=== PATIENT | female | born 1955 | race Native Hawaiian/Other Pacific Islander ===

== ENCOUNTER 2021-01-21 15:03 | Inpatient (IN) | payer MEDICARE, OTHER ==
[~2021-01-21] VITALS: Ht 152.4 cm; Wt 63.5 kg
--- NOTE | 2021-01-21 15:24 | NUR ---
[email or web address], medical screening exam in progress
[2021-01-21 16:00] LABS: HEMATOCRIT 39.4 % (31.2-41.9); MEAN CORPUSCULAR HEMOGLOBIN 30.6 uug (24.7-32.8); MEAN CORPUSCULAR VOLUME 88.9 fL (75.5-95.3); PLATELET COUNT (AUTO) 271 K/uL (179-408)
[2021-01-21 16:07] LABS: CREATININE 0.8 mg/dL (0.6-1.3); POTASSIUM 3.8 mmol/L (3.5-5.1)
[2021-01-21 16:20] LABS: BILIRUBIN,DIRECT 0.1 mg/dL (0.0-0.2); BILIRUBIN,TOTAL 0.4 mg/dL (0.2-1.0); TOTAL PROTEIN, SERUM 7.5 g/dL (6.4-8.2)
--- NOTE | 2021-01-21 17:26 | NUR ---
Patient is resting comfortably on gurney with eyes closed, pending COVID test result. PATIENT IS PAIN FREE AT THIS TIME.
--- NOTE | 2021-01-21 18:13 | NUR ---
Patient is eating dinner tray with good appetite.
[2021-01-21 18:35] VITALS: BP 140/73
--- NOTE | 2021-01-21 18:35 | NUR ---
Patient came to the unit via wheelchair. Ambulatory, denies of any pain at this time, pleasant and cooperative upon assessment. Ms Edwina Navarro FRONT EDGER made aware of the admission. Body assessment done, belongings were checked, left hand IV site intact.
[2021-01-21] MEDS ORDERED: METF-440 PO (18:48)
[2021-01-21] MEDS ORDERED: ATOR10TA PO (18:48)
[2021-01-21 20:00] VITALS: BP 106/69
[2021-01-21] MEDS ORDERED: ACETAMINOPHEN 325 MG TABLET PO PRN (20:30)
[2021-01-21] MEDS ORDERED: Z GUARD REMEDY PASTE 57 GM TUBE TOP PRN (20:30)
[2021-01-21] MEDS ORDERED: ONDANSETRON 4 MG/2 ML VIAL IV PRN (20:30)
[2021-01-21] MEDS ORDERED: MAGNESIUM HYDROXIDE 30 ML LIQUID UDC PO PRN (20:30)
[2021-01-21] MEDS ORDERED: ZOLPIDEM 5 MG TABLET PO PRN (20:30)
[2021-01-21] MEDS ORDERED: ENOXAPARIN SODIUM 40 MG/0.4 ML DISP.SYRIN SQ SCH (21:00)
--- NOTE | 2021-01-21 22:30 | NUR ---
offered pain medication and sleeping medication patient declined she said she will call if she needs it .
--- NOTE | 2021-01-21 22:40 | NUR ---
GIVEN LOVENOX SUBCUTANEOUSLY ,EXPLAINED THE MEDICATION AND PRINTED MEDICATION INFORMATION TO PATIENT .
--- NOTE | 2021-01-21 22:50 | NUR ---
PATIENT CALLED AND WANTS SOMETHING TO EAT GIVEN HAM SANDWICH AND APPLE JUICE PATIENT ABLE TO FEED FAVIOLA NO RESPIRATORY DISTRESS NOTED ON ROOM AIR AND PATIENT DENIES PAIN .
[2021-01-22 00:30] VITALS: BP 105/60
--- NOTE | 2021-01-22 01:00 | NUR ---
sleeping in bed ,no respiratory distress noted breathing even and unlabored .
[2021-01-22 04:00] VITALS: BP 104/64
[2021-01-22 04:30] LABS: MEAN CORPUSCULAR HEMOGLOBIN 30.2 uug (24.7-32.8); MEAN CORPUSCULAR VOLUME 88.4 fL (75.5-95.3); PLATELET COUNT (AUTO) 255 K/uL (179-408)
[2021-01-22 04:40] LABS: CREATININE 0.7 mg/dL (0.6-1.3); MAGNESIUM 1.9 mg/dL (1.8-2.4); PHOSPHOROUS 4.3 mg/dL (2.5-4.9); POTASSIUM 3.9 mmol/L (3.5-5.1)
--- NOTE | 2021-01-22 06:15 | NUR ---
stable all night no complained made.
--- NOTE | 2021-01-22 06:41 | NUR ---
PATIENT SITTING AT THE SIDE OF THE BED EATING CHOCOLATE PUDDING ABLE TO FEED SELF . NO CHEST PAIN NOTED OR VERBALIZED .
[2021-01-22] MEDS ORDERED: PANTOPRAZOLE SODIUM 40 MG TABLET.DR PO SCH (07:00)
--- NOTE | 2021-01-22 07:30 | NUR ---
Patient is alert/oriented x4. denies pain. No chest pain identified. Frequent visual check done. Kept call light within reach. Assisted with ADLs. All needs attended. Kept environment safe. All due meds given as ordered. Will monitor.
[2021-01-22] MEDS ORDERED: METFORMIN HCL 500 MG TABLET PO SCH (08:00)
[2021-01-22 08:08] VITALS: BP 122/72
[2021-01-22] MEDS ORDERED: ASPIRIN 81 MG TAB.CHEW PO SCH (09:00)
[2021-01-22] MEDS ORDERED: PANT40TA49 PO (09:18)
[2021-01-22] MEDS ORDERED: ASPI81TA31 PO (09:18)
--- NOTE | 2021-01-22 11:45 | NUR ---
Discharge patient via private care, stable, skin intact. Ambulatory. Afebrile. Denies pain. No discomfort identified.
[2021-01-22 11:50] VITALS: BP 116/60
[2021-01-22] MEDS ORDERED: ATORVASTATIN 10 MG TABLET PO SCH (21:00)
== END 2021-01-22 11:45 | disposition home or self-care (01) | DRG 392 ==
LOC: ER 15:03 → TELE3 18:10
PROVIDERS: ADMIT Nurse Practitioner Acute Care; ATTEND Nurse Practitioner Acute Care
DX: K21.9 Gastro-esophageal reflux disease without esophagitis (principal); E11.9 Type 2 diabetes mellitus without complications; K80.20 Calculus of gallbladder without cholecystitis without obstruction; E78.5 Hyperlipidemia, unspecified; Z79.82 Long term (current) use of aspirin; I10 Essential (primary) hypertension; Z20.822 Contact with and (suspected) exposure to COVID-19; Z79.84 Long term (current) use of oral hypoglycemic drugs
CPT/HCPCS: 36415; 70030-TC; 71045; 83690; 83735; 84100; 85025; 93005; A4663; G0378; J1650